=== PATIENT | male | born 1930 | race Two or more races ===

== ENCOUNTER 2017-02-21 15:41 | Inpatient (IN) | payer MEDICARE, OTHER ==
[~2017-02-21] VITALS: Ht 160 cm; Wt 86.3 kg
[2017-02-21] VITALS (30 sets, daily range): BP systolic 118–189; BP diastolic 66–100; PULSE 71–132; RESP 13–24; Ht 160 cm; Wt 86.3 kg
[2017-02-21] MEDS ORDERED: ASPI-664 PO (16:11)
[2017-02-21] MEDS ORDERED: MIDAZOLAM 1 MG/ML 2 ML INJ ONE (16:30)
[2017-02-21] MEDS ORDERED: VERAPAMIL 5 MG INJ ONE (16:30)
[2017-02-21] MEDS ORDERED: FENTAnyl 50 MCG/ML VIAL ONE (16:30)
[2017-02-21] MEDS ORDERED: NITROGLYCERIN (IC) 100 MCG/ML INJ ONE (16:30)
[2017-02-21] MEDS ORDERED: LIDOCAINE 1% (MDV) 20 ML INJ ONE (16:41)
[2017-02-21] MEDS ORDERED: hydrALAzine 20 MG INJ ONE (16:41)
[2017-02-21] MEDS ORDERED: IODIXANOL LOCM 100 ML BTL ONE (16:42)
[2017-02-21] MEDS ORDERED: BIVALIRUDIN 250MG /NS 50 ML 50 ML IVPB ONE (17:02)
[2017-02-21] MEDS ORDERED: CLOPIDOGREL 300 MG TAB ONE (17:03)
[2017-02-21] MEDS ORDERED: SOD CHLORIDE 0.9% 1,000 ML IV SCH (17:58)
[2017-02-21] MEDS ORDERED: morphine 2 MG INJ IV PRN (18:00)
[2017-02-21] MEDS ORDERED: HOLD all METFORMIN and METFORMIN CONTAINING medications for 48 hours post procedure. Chec XX SCH (18:00)
[2017-02-21] MEDS ORDERED: ONDANSETRON 4 MG INJ IV PRN (18:00)
[2017-02-21] MEDS ORDERED: AMLODIPINE 5 MG TAB PO SCH (18:00)
[2017-02-21] MEDS ORDERED: hydrALAzine 20 MG INJ IV PRN (18:00)
--- NOTE | 2017-02-21 18:33 | OPR ---
Date/Time of Note Date/Time of Note DATE: 02/21/17 TIME: 18:14 Operative Report Free Text/Dictation Procedure Date: 02/21/2017 Plumbing Foreman/surgeon: Aliya Hernandez MD. Procedures Performed: 1)Left heart catheterization with selective left and right coronary angiography. 2)Balloon angioplasty and stenting of the prox-mid with Adrian 2.5 x 18 and Adrian 2.25 x 8 drug eluting stents (overlapping) Pre-operative Diagnosis:NSTEMI Post-operative Diagnosis:NSTEMI s/p PCI of prox-mid LAD Indications:86 yo M presenting with chest pain and was found to have an NSTEMI ( trop 0.3) with ongoing symptoms. Cardiac cath for evaluation. Description of Procedure: After informed consent, the patient was brought to the cardiac catheterization lab. The procedure site was prepped and draped in usual manner. The patient was premedicated with versed 1 mg and fentanyl 25 mcg. 3 mL lidocaine was injected into the right wrist. Next using the posterior wall technique, the 6/ 5 maori sheath was inserted into the right radial artery. Next using the EBU 3.0 guide and JR4 diagnostic, selective angiography of the left and right coronary arteries were obtained. The decision was made to proceed with PCI of the LAD. After appropriate anticoagulation and antiplatelets were given, the PT 2 moderate support angioplasty wire was advanced past the lesion. Next the 2.0 X 12 balloon was used to dilate the lesion times 3 at a maximum of [address] elevations were noted. Subsequently, the Gail 2.5 x 18 stent was advanced to the lesion and deployed at 12 isai. The distal portion of the stent was underexpanded and so an Adrian 2.25 x 8 stent was used to cover the distal portion (deployed at nominal pressure and overlapping). Next the stent was post dilated with the 2.5 X 8 noncompliant balloon times 5 at a maximum of 16 isai. Final angiography revealed LIANA 3 flow, no edge dissection, and appropriate stent expansion. A brief attempt at wiring the OM lesion was attempted but due to Cx tortuosity and likely need for prolonged period to finish the case, the decision was made to stage it at a later time. Next all equipment was removed and hemostasis was achieved by TR band Findings: Anatomy/Hemodynamics: Left main: normal LAD: tortuous calcified vessel with prox-mid 99% lesion, mid-distal vessel with diffuse 20-30% plaquing Diagonal:luminal irregularities Circumflex: tortuous, calcified, 20-30% plaquing Obtuse marginal: prox 80% RCA:20-30% plaquing PDA:luminal irregularities PLV:luminal irregularities LV angiography:not done Contrast used: 180 mL Fluoroscopy time:22.3 min Medications used: Versed 1 Fentanyl 25 Radial cocktail 200 NTG, 2.5 verapamil angiomax ASA already given at [facility] Plavix 600mg NTG 200 mcg IC x1 Equipment used: 6 maori EBU 3.0 guide PT 2 moderate support angioplasty wire 2 x 12 balloon Adrian 2.5 x 18 and Adrian 2.25 x 8 drug eluting stents (overlapping) 2.5 x 8 noncompliant balloon Estimated blood loss<10 mL. Specimen: none Grafts/implants: none Complications: none Assessment: NSTEMI s/p PCI of prox-mid LAD CAD with residual OM lesion HTN Plan: -admit to ICU -ASA 81mg indefinitely -plavix 75mg at least one year -metoprolol 50mg BID -lipitor 40mg for now, can uptitrate as tolerated -staged PCI of OM in 2 weeks as outpt vs inpt if still symptomatic Preoperative Diagnosis NSTEMI Postoperative Diagnosis NSTEMI s/p PCI Surgeon see signature line Police Aide none Anesthesia Type: moderate sedation Anesthesiologist: ALIYA HERNANDEZ Estimated Blood Loss: none Transfusion none Specimen none Grafts/Implants none Complications none Procedure Description see free text ALIYA HERNANDEZ Feb 21, 2017 18:30
[2017-02-21] MEDS ORDERED: morphine (1 MG/ML) 10ML SYRINGE IV ONE (18:53)
[2017-02-21] MEDS: METOPROLOL 50 MG TAB PO SCH (19:21)
[2017-02-21] MEDS ORDERED: METOPROLOL 5 MG INJ IV ONE (20:30)
[2017-02-21] MEDS ORDERED: AMIODARONE 150 MG INJ IV STA (22:08)
[2017-02-21] MEDS ORDERED: AMIODARONE 150MG/D5W BOLUS 100 ML IV ONE (22:15)
[2017-02-22] VITALS (10 sets, daily range): BP systolic 102–151; BP diastolic 59–88; PULSE 65–111; RESP 14–21
[2017-02-22 05:29] LABS: BASOPHILS % 0.2 % (0.0-2.0); EOSINOPHILS # 0.1 10^3/ul (0.0-0.5); EOSINOPHILS % 0.7 % (0.0-7.0); HEMATOCRIT 41.8 % (42.0-52.0); HEMOGLOBIN 14.4 g/dl (14.0-18.0); LYMPHOCYTES # 3.1 10^3/ul (0.8-2.9); LYMPHOCYTES % 25.6 % (15.0-51.0); MEAN CORPUSCULAR HEMOGLOBIN 32.4 pg (29.0-33.0); MEAN CORPUSCULAR HGB CONC 34.4 g/dl (32.0-37.0); MEAN CORPUSCULAR VOLUME 94.1 fl (82.0-101.0); MONOCYTE # 1.5 10^3/ul (0.3-0.9); MONOCYTES % 12.1 % (0.0-11.0); NEUTROPHIL # 7.4 10^3/ul (1.6-7.5); NEUTROPHILS % 61.1 % (39.0-77.0); PLATELET COUNT 205 10^3/UL (140-415); RED BLOOD COUNT 4.44 10^6/ul (4.70-6.10); RED CELL DISTRIBUTION WIDTH 12.2 % (11.5-14.5); WHITE BLOOD COUNT 12.1 10^3/ul (4.8-10.8)
[2017-02-22 06:10] LABS: ALBUMIN 4.6 g/dl (3.3-4.9); ALBUMIN/GLOBULIN RATIO 1.39; BILIRUBIN,INDIRECT 1.2 mg/dl (0-1.1); BILIRUBIN,TOTAL 1.2 mg/dl (0.2-1.3); CREATININE 0.9 mg/dl (0.61-1.24); POTASSIUM 5.4 mmol/L (3.5-5.1); TOTAL PROTEIN 7.9 g/dl (6.1-8.1)
--- NOTE | 2017-02-22 07:53 | CONS ---
Date/Time of Note Date/Time of Note DATE: 02/22/17 TIME: 07:48 Assessment/Plan Assessment/Plan Chief Complaint/Hosp Course NSTEMI s/p PCI of prox-mid LAD 02/22. CAD: with residual OM lesion. If ambulates without symptoms, can be done as outpt in 2-3 weeks. If recurrent chest pain, can be done Friday Paroxysmal SVT: Likely atrial tachycardia by EKG and tele. Was asymptomatic throughout. Had to use one dose of IV amiodarone without a drip but now remains in sinus. HTN Hyperkalemia: Cr normal so ?hemolyzed sample -ambulate and if asymptomatic and no further SVT, can be discharged. Otherwise can be transferred to tele and if recurrent chest pain, will stage PCI of OM on Friday I have given a prescription for below meds. -ASA 81mg indefinitely -plavix 75mg at least one year -metoprolol 50mg BID -lipitor 40mg for now, can uptitrate as tolerated -amlodipine 10mg -hold ACEI/ARB for now due to hyperkalemia -f/u with me in one week Problems: Consultation Date/Type/Reason Admit Date/Time Feb 21, 2017 at 20:20 Initial Consult Date 24 HR Interval Summary Free Text/Dictation Had SVT to the 130s overnight, asymptomatic. Eventually converted with amio bolus but no drip. No recurrence. No chest pain or SOB this am. Exam/Review of Systems Vital Signs Vitals Vital Signs Date Time Temp Pulse Resp B/P Pulse Ox O2 Delivery O2 Flow Rate FiO2 02/22/17 05:00 81 14 151/77 98 Room Air 02/22/17 04:00 98.5 Intake and Output 02/21/17 02/21/17 02/22/17 15:00 23:00 07:00 Intake Total 480 ml 525 ml Output Total 300 ml 400 ml Balance 180 ml 125 ml Exam Constitutional: alert, oriented Psych: no complaints Head: atraumatic, normocephalic Neck: No jvd Respiratory: clear to auscultation Cardiovascular: regular rate and rhythm, No edema, No systolic murmur Gastrointestinal: non-tender, soft, No distended Neurological: nl mental status, nl speech Skin: No rash or lesions Results Result Diagram: 02/22/1745602/22/17456 Results 24 hrs Laboratory Tests Test 02/22/17 04:57 White Blood Count 12.1 H Red Blood Count 4.44 L Hemoglobin 14.4 Hematocrit 41.8 L Mean Corpuscular Volume 94.1 Mean Corpuscular Hemoglobin 32.4 Mean Corpuscular Hemoglobin Concent 34.4 Red Cell Distribution Width 12.2 Platelet Count 205 Mean Platelet Volume 9.0 Neutrophils % 61.1 Lymphocytes % 25.6 Monocytes % 12.1 H Eosinophils % 0.7 Basophils % 0.2 Nucleated Red Blood Cells % 0.0 Neutrophils # 7.4 Lymphocytes # 3.1 H Monocytes # 1.5 H Eosinophils # 0.1 Basophils # 0.0 Nucleated Red Blood Cells # 0.0 Sodium Level 136 Potassium Level 5.4 H Chloride Level 104 Carbon Dioxide Level 22 Anion Gap 15 Blood Urea Nitrogen 14 Creatinine 0.90 Glucose Level 144 Calcium Level 9.0 Total Bilirubin 1.2 Direct Bilirubin 0.00 Indirect Bilirubin 1.2 H Aspartate Amino Transf (AST/SGOT) 69 H Alanine Aminotransferase (ALT/SGPT) 31 Alkaline Phosphatase 48 Total Protein 7.9 Albumin 4.6 Globulin 3.30 H Albumin/Globulin Ratio 1.39 Medications Medications Current Medications Miscellaneous Information (* Miscellaneous Pharmacy Order) HOLD all METFORMIN ... ONCE XX ; Start 02/21/17 at 18:00; Stop 02/23/17 at 17:59 Morphine Sulfate (morphine) 2 mg Q2H PRN IV FOR NON CARDIAC PAIN (4-10) Last administered on 02/21/17 19:12; Admin Dose 2 MG; Start 02/21/17 at 18:00 Ondansetron HCl (Zofran Inj) 4 mg Q4H PRN IV NAUSEA AND/OR VOMITING; Start at 18:00 Hydralazine HCl (Apresoline) 10 mg Q8H PRN IV SBP>160; Start 02/21/17 at 18:00 Metoprolol Tartrate (Lopressor) 50 mg BID PO Last administered on 02/21/17 19: 21; Admin Dose 50 MG; Start 02/21/17 at 21:00 Amlodipine Besylate (Norvasc) 5 mg DAILY PO Last administered on 02/21/17 21: 01; Admin Dose 5 MG; Start 02/21/17 at 18:00 Aspirin (Aspirin) 81 mg DAILY PO ; Start 02/22/17 at 09:00 Clopidogrel Bisulfate (plaVIX) 75 mg DAILY PO ; Start 02/22/17 at 09:00 ALIYA HUITRON Feb 22, 2017 07:53
[2017-02-22] MEDS: METOPROLOL 50 MG TAB PO SCH (08:14)
[2017-02-22] MEDS ORDERED: CLOPIDOGREL 75 MG TAB PO SCH (09:00)
[2017-02-22] MEDS ORDERED: AMLODIPINE 10 MG TAB PO SCH (09:00)
[2017-02-22] MEDS ORDERED: ATORVASTATIN 40 MG TAB PO SCH (09:00)
[2017-02-22] MEDS ORDERED: ASPIRIN 81 MG TAB PO SCH (09:00)
[2017-02-22] MEDS ORDERED: ATOR40TA68 PO (09:09)
[2017-02-22] MEDS ORDERED: AMLO-147 PO (09:09)
[2017-02-22] MEDS ORDERED: CLOP75TA28 PO (09:09)
[2017-02-22] MEDS ORDERED: ASPI81TA3 PO (09:09)
[2017-02-22] MEDS ORDERED: METO-429 PO (09:09)
--- NOTE | 2017-02-22 09:12 | DS ---
Date/Time of Note Date/Time of Note DATE: 02/22/17 TIME: 09:11 Discharge Summary Admission/Discharge Info Admit Date/Time Feb 21, 2017 at 20:20 Discharge Date/Time Discharge Diagnosis s/p cath, stent Patient Condition: Good Hx of Present Illness pt. admitted for cp, went to lab clerk, had pci, still has lesion in OM to be done at later date per cards. currently stable, no cp or arrhythmias meds reviewed with pt. will see cards in 3 days Hospital Course NSTEMI s/p PCI of prox-mid LAD 02/22. CAD: with residual OM lesion. If ambulates without symptoms, can be done as outpt in 2-3 weeks. If recurrent chest pain, can be done Friday Paroxysmal SVT: Likely atrial tachycardia by EKG and tele. Was asymptomatic throughout. Had to use one dose of IV amiodarone without a drip but now remains in sinus. HTN Hyperkalemia: Cr normal so ?hemolyzed sample -ambulate and if asymptomatic and no further SVT, can be discharged. Otherwise can be transferred to tele and if recurrent chest pain, will stage PCI of OM on Friday I have given a prescription for below meds. -ASA 81mg indefinitely -plavix 75mg at least one year -metoprolol 50mg BID -lipitor 40mg for now, can uptitrate as tolerated -amlodipine 10mg -hold ACEI/ARB for now due to hyperkalemia -f/u with me in one week Home Meds Active Scripts Aspirin (Aspirin) 81 Mg Chew, 81 MG PO DAILY for 90 Days, TAB Prov:CHAD ALSTON MD 02/22/17 Metoprolol Tartrate* (Lopressor*) 50 Mg Tab, 50 MG PO BID for 90 Days, TAB Prov:CHAD ALSTON MD 02/22/17 Atorvastatin* (Atorvastatin*) 40 Mg Tablet, 40 MG PO DAILY for 90 Days, TAB Prov:CHAD ALSTON MD 02/22/17 Amlodipine Besylate* (Amlodipine Besylate*) 10 Mg Tablet, 10 MG PO DAILY for 90 Days, TAB Prov:CHAD ALSTON MD 02/22/17 Clopidogrel Bisulfate (Clopidogrel) 75 Mg Tablet, 75 MG PO DAILY for 90 Days, TAB Prov:CHAD ALSTON MD 02/22/17 Reported Medications Aspirin* (Aspirin* EC) 81 Mg Tablet., 81 MG PO DAILY, TAB 02/21/17 Primary Care Provider Care Physician No Primary Time spent on discharge: < 30 minutes Pending Labs Laboratory Tests Test 02/22/17 04:57 White Blood Count 12.110^3/ul (4.8-10.8) Red Blood Count 4.4410^6/ul (4.70-6.10) Hemoglobin 14.4g/dl (14.0-18.0) Hematocrit 41.8% (42.0-52.0) Mean Corpuscular Volume 94.1fl (82.0-101.0) Mean Corpuscular Hemoglobin 32.4pg (29.0-33.0) Mean Corpuscular Hemoglobin Concent 34.4g/dl (32.0-37.0) Red Cell Distribution Width 12.2% (11.5-14.5) Platelet Count 08712^3/UL (140-415) Mean Platelet Volume 9.0fl (7.4-10.4) Neutrophils % 61.1% (39.0-77.0) Lymphocytes % 25.6% (15.0-51.0) Monocytes % 12.1% (0.0-11.0) Eosinophils % 0.7% (0.0-7.0) Basophils % 0.2% (0.0-2.0) Nucleated Red Blood Cells % 0.0/100WBC (0.0-0.0) Neutrophils # 7.410^3/ul (1.6-7.5) Lymphocytes # 3.110^3/ul (0.8-2.9) Monocytes # 1.510^3/ul (0.3-0.9) Eosinophils # 0.110^3/ul (0.0-0.5) Basophils # 0.010^3/ul (0.0-0.1) Nucleated Red Blood Cells # 0.010^3/ul (0.0-0.0) Sodium Level 136mmol/L (135-144) Potassium Level 5.4mmol/L (3.5-5.1) Chloride Level 104mmol/L (97-110) Carbon Dioxide Level 22mmol/L (21-31) Anion Gap 15 (8-16) Blood Urea Nitrogen 14mg/dl (7-20) Creatinine 0.90mg/dl (0.61-1.24) Glucose Level 144mg/dl (70-220) Calcium Level 9.0mg/dl (8.4-10.2) Total Bilirubin 1.2mg/dl (0.2-1.3) Direct Bilirubin 0.00mg/dl (0.00-0.20) Indirect Bilirubin 1.2mg/dl (0-1.1) Aspartate Amino Transf (AST/SGOT) 69IU/L (15-46) Alanine Aminotransferase (ALT/SGPT) 31IU/L (13-69) Alkaline Phosphatase 48IU/L (42-121) Total Protein 7.9g/dl (6.1-8.1) Albumin 4.6g/dl (3.3-4.9) Globulin 3.30g/dl (1.3-3.2) Albumin/Globulin Ratio 1.39 CHAD ALSTON MD Feb 22, 2017 09:12
--- NOTE | 2017-02-24 17:06 | RADRPT ---
Vent Rate: 133 bpm RR Interval: 0 msec IN Interval: 0 msec QRS Duration: 134 msec QT Interval: 382 msec QTC Interval: 568 msec P-R-T Independence: 0 - 57 - 32 degrees Wide QRS tachycardia Right bundle branch block Septal infarct , age undetermined Abnormal ECG Electronically Signed By: Handy Melton [id number]
== END 2017-02-22 10:45 | disposition home or self-care (01) | DRG 247 ==
LOC: CCL 15:41 → ICU 20:20
PROVIDERS: ADMIT Internal Medicine Interventional Cardiology; ATTEND Internal Medicine Interventional Cardiology
PROC: B211YZZ Fluoroscopy of Multiple Coronary Arteries using Other Contrast (ICD-10-PCS; 2017-02-21)
PROC: 027035Z Dilation of Coronary Artery, One Artery with Two Drug-eluting Intraluminal Devices, Percutaneous Approach (ICD-10-PCS; principal; 2017-02-21 16:00)
PROC: 4A023N7 Measurement of Cardiac Sampling and Pressure, Left Heart, Percutaneous Approach (ICD-10-PCS; 2017-02-21 16:00)
DX: I21.4 Non-ST elevation (NSTEMI) myocardial infarction (principal); E87.5 Hyperkalemia; I47.1 Supraventricular tachycardia; I10 Essential (primary) hypertension; I25.10 Atherosclerotic heart disease of native coronary artery without angina pectoris; I16.0 Hypertensive urgency; Z79.02 Long term (current) use of antithrombotics/antiplatelets; Z79.82 Long term (current) use of aspirin
CPT/HCPCS: 80053; 85025; 87081; 93005; 93454; C1725; C1887; C9600; J0282; J0360; J0583; J1644; J2250; J2270; J3010; Q9967

== ENCOUNTER 2017-02-27 13:10 | Inpatient (IN) | payer MEDICARE, OTHER ==
[2017-02-27] VITALS (13 sets, daily range): BP systolic 112–179; BP diastolic 55–85; PULSE 66–81; RESP 15–23; Ht 160 cm; Wt 83.0 kg
[~2017-02-27] VITALS: Ht 160 cm; Wt 83.0 kg
[~2017-02-27 13:10] MED LIST: AMLO-147 PO; ASPI-664 PO; ASPI81TA3 PO; ATOR40TA68 PO; CLOP75TA28 PO; METO-429 PO
[2017-02-27] MEDS ORDERED: ATOR40TA68 PO (13:52)
[2017-02-27] MEDS ORDERED: LIDOCAINE 1% (MDV) 20 ML INJ ONE (13:57)
[2017-02-27] MEDS ORDERED: HEPARIN 1000 UNITS/ML 10 ML INJ ONE (13:57)
[2017-02-27] MEDS ORDERED: FENTAnyl 50 MCG/ML VIAL ONE (13:57)
[2017-02-27] MEDS ORDERED: IODIXANOL LOCM 100 ML BTL ONE (13:57)
[2017-02-27] MEDS ORDERED: HEPARIN 1000 UNITS/NS (A-LINE) 1,000 ML ONE (13:57)
[2017-02-27] MEDS ORDERED: NITROGLYCERIN (IC) 100 MCG/ML INJ ONE (13:58)
[2017-02-27] MEDS ORDERED: VERAPAMIL 5 MG INJ ONE (13:58)
[2017-02-27] MEDS ORDERED: MIDAZOLAM 1 MG/ML 2 ML INJ ONE (13:58)
[2017-02-27] MEDS ORDERED: BIVALIRUDIN 250MG /NS 50 ML 50 ML IVPB ONE ×2 (14:10→15:41)
[2017-02-27] MEDS ORDERED: CLOPIDOGREL 300 MG TAB ONE (14:13)
[2017-02-27] MEDS ORDERED: SOD CHLORIDE 0.9% 1,000 ML IV SCH (16:26)
[2017-02-27] MEDS ORDERED: morphine 2 MG INJ IV PRN (16:30)
--- NOTE | 2017-02-27 16:49 | OPR ---
Date/Time of Note Date/Time of Note DATE: 02/27/17 TIME: 16:32 Operative Report Preoperative Diagnosis NSTEMI Postoperative Diagnosis NSTEMI, s/p PCI of OM Surgeon see signature line Vp none Anesthesia Type: moderate sedation Estimated Blood Loss: minimal Transfusion none Specimen none Grafts/Implants none Complications none Procedure Description Procedure Date:02/27/2017 Casting Plug Assembler/surgeon: Aliya Hernandez MD. Procedures Performed: 1)Left heart catheterization with selective left coronary angiography. 2)Balloon angioplasty and stenting of the prox OM with an Adrian 2.25 x 8 stent. Pre-operative Diagnosis:NSTEMI, recurrent chest pain with known residual CAD Post-operative Diagnosis:same s/p PCI of OM Indications:86 yo M with CAD s/p PCI of LAD 02/21/17 with residual CAD of the prox OM with plans for outpt staged PCI, who presented with recurrent chest pain and had elavted trops again (0.2). The pt was admitted and transferred for cardiac cath to reexamine the LAD stent and likely PCI of the OM Description of Procedure: After informed consent, the patient was brought to the cardiac catheterization lab. The procedure site was prepped and draped in usual manner. The patient was premedicated with versed 1 mg and fentanyl 50 mcg. 2 mL lidocaine was injected into the left wrist. Next using the posterior wall technique, the 6/5 st lucian sheath was inserted into the left radial artery. Next using the EBU 3.0 guide, selective angiography of the left coronary arteries was obtained. The decision was made to proceed with PCI of the OM as the LAD stent was patent. The EBU 3.0, 3.25 and eventually the Voda 3.5 guide was advanced and engaged into the left coronary artery. After appropriate anticoagulation and antiplatelets were given, the BMW angioplasty wire was advanced past the lesion using a 1.2 x 8 balloon for support. The balloon was then used to dilate the lesion times 3. Next the 2.0 X 12 balloon was used to dilate the lesion 3. The stent would not cross so the lesion was then dilated with the 2.5 x 8 NC balloon. The stent again would not cross so a Mailman was advanced as a gayathri. Again the stent would not cross so the calcified bend prior to the OM lesion at the Cx) was dialted with the 2.5 x 8 NC balloon. Eventually, the Adrian 2.25 x 8 stent was advanced to the lesion and deployed at 12 isai after the Mailman was removed. Next the stent was post dilated with the 2.5 X 6 noncompliant balloon times 2 at a maximum of 14 isai. Final angiography revealed LIANA 3 flow, no edge dissection, and appropriate stent expansion. Next all equipment was removed and hemostasis was achieved by TR band. Findings: Anatomy/Hemodynamics: Left main: normal LAD: prox-mid stents patent Diagonal:luminal irregularities Circumflex: tortuous vessel with mid disease right at large OM branch Obtuse marginal: prox 80% eccentric lesion Contrast used: Fluoroscopy time: 160 mL Medications used: Versed 1mg Fentanyl 50 mcg ANgiomax plavix 300mg NTG 200 IC x1 Equipment used: 6 st lucian Voda 3.5 guide BMW and Mailman angioplasty wire 1.2 x 8 2 x 8 balloon 2.25 x 8 NC Adrian 2.25 x 8 drug eluting stent 2.5 x 6 noncompliant balloon Estimated blood loss<10 mL. Specimen: none Grafts/implants: none Complications: none Assessment: NSTEMI s/p PCI of residual OM lesion. LAD stent was patent CAD: no residual lesions left HTN Plan: -ASA 81mg lifelong -plavix 75mg one year -lipitor 40mg -metoprolol had been switched to Toprol XL 100mg -benazepril 10mg ALIYA HERNANDEZ Feb 27, 2017 16:49
--- NOTE | 2017-02-27 16:50 | CONS ---
Date/Time of Note Date/Time of Note DATE: 02/27/17 TIME: 16:49 Assessment/Plan Assessment/Plan Chief Complaint/Hosp Course NSTEMI s/p PCI of residual OM lesion. LAD stent was patent CAD: no residual lesions left HTN Generalized rash: ?drug induced -ASA 81mg lifelong -plavix 75mg one year -lipitor 40mg -metoprolol had been switched to Toprol XL 100mg -benazepril 10mg Problems: Consultation Date/Type/Reason Admit Date/Time Initial Consult Date 24 HR Interval Summary Free Text/Dictation S/p cath with PCI of prox OM Exam/Review of Systems Exam Constitutional: alert, oriented Psych: nl mood/affect, no complaints Head: atraumatic, normocephalic Neck: No jvd Respiratory: clear to auscultation, No crackles/rales Cardiovascular: regular rate and rhythm, No edema Gastrointestinal: non-tender, soft Neurological: nl mental status, nl speech Medications Medications Current Medications Miscellaneous Information (* Miscellaneous Pharmacy Order) HOLD all METFORMIN ... ONCE ONCE XX ; Start 02/27/17 at 16:30; Stop 02/27/17 at 16:31; Status UNV Morphine Sulfate 2 mg 2 mg Q2H PRN IV FOR NON CARDIAC PAIN (4-10); Start at 16:30; Status UNV Sodium Chloride (NS) 1,000 ml @ 75 mls/hr [id number] IV ; Start 02/27/17 at 16:26 ; Stop 02/27/17 at 21:25; Status UNV ALIYA HUITRON Feb 27, 2017 16:50
[2017-02-27] MEDS ORDERED: hydrALAzine 20 MG INJ IV PRN (17:00)
[2017-02-27] MEDS ORDERED: HYDROCORTISONE 2.5% 20 GM CR TOP SCH (17:27)
[2017-02-27] MEDS: HYDROCORTISONE 2.5% 20 GM CR TOP SCH (18:03)
[2017-02-27] MEDS ORDERED: ATORVASTATIN 40 MG TAB PO SCH (21:00)
[2017-02-28] VITALS (17 sets, daily range): BP systolic 101–176; BP diastolic 54–83; PULSE 68–83; RESP 9–21
[2017-02-28 07:38] LABS: BASOPHILS % 0.3 % (0.0-2.0); EOSINOPHILS # 0.7 10^3/ul (0.0-0.5); EOSINOPHILS % 5.6 % (0.0-7.0); HEMATOCRIT 38.3 % (42.0-52.0); HEMOGLOBIN 13.2 g/dl (14.0-18.0); LYMPHOCYTES % 17.6 % (15.0-51.0); MEAN CORPUSCULAR HEMOGLOBIN 31.9 pg (29.0-33.0); MEAN CORPUSCULAR HGB CONC 34.5 g/dl (32.0-37.0); MEAN CORPUSCULAR VOLUME 92.5 fl (82.0-101.0); MEAN PLATELET VOLUME 8.9 fl (7.4-10.4); MONOCYTE # 1.2 10^3/ul (0.3-0.9); MONOCYTES % 10.4 % (0.0-11.0); NEUTROPHIL # 7.6 10^3/ul (1.6-7.5); NEUTROPHILS % 65.8 % (39.0-77.0); PLATELET COUNT 224 10^3/UL (140-415); RED BLOOD COUNT 4.14 10^6/ul (4.70-6.10); RED CELL DISTRIBUTION WIDTH 11.9 % (11.5-14.5); WHITE BLOOD COUNT 11.6 10^3/ul (4.8-10.8)
[2017-02-28 08:01] LABS: CALCIUM 8.5 mg/dl (8.4-10.2); CREATININE 0.97 mg/dl (0.61-1.24); POTASSIUM 3.8 mmol/L (3.5-5.1)
[2017-02-28] MEDS: HYDROCORTISONE 2.5% 20 GM CR TOP SCH ×3 (08:08→13:03)
[2017-02-28] MEDS ORDERED: ASPIRIN 81 MG TAB PO SCH (09:00)
[2017-02-28] MEDS ORDERED: BENAZEPRIL 10 MG TAB PO SCH (09:00)
[2017-02-28] MEDS ORDERED: CLOPIDOGREL 75 MG TAB PO SCH (09:00)
[2017-02-28] MEDS ORDERED: METOPROLOL (XL) 100 MG TAB PO SCH (09:00)
--- NOTE | 2017-02-28 09:42 | CONS ---
Date/Time of Note Date/Time of Note DATE: 02/28/17 TIME: 09:39 Assessment/Plan Assessment/Plan Chief Complaint/Hosp Course NSTEMI s/p PCI of residual OM lesion. LAD stent was patent CAD: no residual lesions left HTN Generalized rash: ?drug induced. Unclear culprit. Has been on ASA residential and benazepril was started after rash so either plavix, MTP which are less likely or lipitor -ok for d/c home -ASA 81mg lifelong -plavix 75mg one year -hold lipitor for now to see how the rash does -metoprolol had been switched to Toprol XL 100mg, continue on d/c -benazepril 10mg Problems: Consultation Date/Type/Reason Admit Date/Time Feb 27, 2017 at 16:48 24 HR Interval Summary Free Text/Dictation No chest pain or SOB overnight. Very brief run of SVT. Still with rash and itching Exam/Review of Systems Vital Signs Vitals Vital Signs Date Time Temp Pulse Resp B/P Pulse Ox O2 Delivery O2 Flow Rate FiO2 02/28/17 06:00 75 15 130/74 95 Room Air 02/28/17 04:00 98.4 Intake and Output 02/27/17 02/27/17 02/28/17 15:00 23:00 07:00 Intake Total 595 ml 600 ml Output Total 200 ml 300 ml Balance 395 ml 300 ml Exam Constitutional: alert, oriented Psych: no complaints Head: atraumatic, normocephalic Neck: No jvd Respiratory: clear to auscultation, No crackles/rales Cardiovascular: regular rate and rhythm, No edema, No systolic murmur Gastrointestinal: non-tender, soft Neurological: nl mental status, nl speech Skin: rash or lesions (generalized rash) Results Result Diagram: 02/28/1772702/28/17727 Results 24 hrs Laboratory Tests Test 02/28/17 07:28 White Blood Count 11.6 H Red Blood Count 4.14 L Hemoglobin 13.2 L Hematocrit 38.3 L Mean Corpuscular Volume 92.5 Mean Corpuscular Hemoglobin 31.9 Mean Corpuscular Hemoglobin Concent 34.5 Red Cell Distribution Width 11.9 Platelet Count 224 Mean Platelet Volume 8.9 Neutrophils % 65.8 Lymphocytes % 17.6 Monocytes % 10.4 Eosinophils % 5.6 Basophils % 0.3 Nucleated Red Blood Cells % 0.0 Neutrophils # 7.6 H Lymphocytes # 2.0 Monocytes # 1.2 H Eosinophils # 0.7 H Basophils # 0.0 Nucleated Red Blood Cells # 0.0 Sodium Level 138 Potassium Level 3.8 Chloride Level 107 Carbon Dioxide Level 22 Anion Gap 13 Blood Urea Nitrogen 14 Creatinine 0.97 Glucose Level 121 Calcium Level 8.5 Medications Medications Current Medications Morphine Sulfate (morphine) 2 mg Q2H PRN IV FOR NON CARDIAC PAIN (4-10); Start 02/27/17 at 16:30 Aspirin (Aspirin) 81 mg DAILY PO Last administered on 02/28/17 08:07; Admin Dose 81 MG; Start 02/28/17 at 09:00 Clopidogrel Bisulfate (plaVIX) 75 mg DAILY PO Last administered on 02/28/17 08 :07; Admin Dose 75 MG; Start 02/28/17 at 09:00 Atorvastatin Calcium (Lipitor) 40 mg HS PO Last administered on 02/27/17 20:59 ; Admin Dose 40 MG; Start 02/27/17 at 21:00 Metoprolol Succinate (Toprol Xl) 100 mg DAILY PO Last administered on 08:07; Admin Dose 100 MG; Start 02/28/17 at 09:00 Benazepril HCl (Lotensin) 10 mg DAILY PO Last administered on 02/28/17 08:08; Admin Dose 10 MG; Start 02/28/17 at 09:00 Hydralazine HCl (Apresoline) 5 mg Q4H PRN IV SBP>160; Start 02/27/17 at 17:00 Hydrocortisone (Hydrocortisone 2.5% Cr) 1 applic TID TOP Last administered on 02/28/17 08:08; Admin Dose 1 APPLIC; Start 02/27/17 at 17:31 ALIYA HUITORN Feb 28, 2017 09:42
[2017-02-28] MEDS ORDERED: ASPI81TA3 PO (11:24)
[2017-02-28] MEDS ORDERED: BENEZEPRIL PO (11:26)
[2017-02-28] MEDS ORDERED: TOPROL PO (11:27)
--- NOTE | 2017-02-28 13:47 | HP ---
DATE OF ADMISSION: 02/27/2017 HISTORY OF PRESENT ILLNESS: This is an 86-year-old male with a past medical history of coronary ar jonny disease status post PCI to LAD on 02/21/2017 with residual coronary artery disease to proximal OM, a history of hypertension who presents to [facility] to undergo elective cardi ac catheterization. Patient was seen by , performed cardiac catheterization with revascula rization of the obtuse marginal. The patient following this procedure, was admitted to the ICU for observation. Overnight, the patient has been stable. There have been no reports of hemoptysis, hem atemesis or hematochezia. PAST MEDICAL HISTORY: History of coronary artery disease, dyslipidemia, hypertension. PAST SURGICAL HISTORY: Status post PCI. ALLERGIES: NO KNOWN DRUG ALLERGIES. FAMILY HISTORY: Noncontributory. SOCIAL HISTORY: Does not drink, smoke or do drugs. MEDICATIONS: Reviewed. REVIEW OF SYSTEMS: A 14-point review of systems was conducted. Pertinent positives in HPI, otherwi se negative. PHYSICAL EXAMINATION: VITAL SIGNS: Blood pressure is 130/74, respirations 15, pulse 75, temperature 98.4. HEENT: Head is normocephalic. Pupils are reactive to light. NECK: Supple. HEART: Regular rate. LUNGS: Show diminished breath sounds at base. ABDOMEN: Soft, nontender to palpation without rebound or guarding. EXTREMITIES: Negative for clubbing, cyanosis, edema. DERMATOLOGIC: No rashes. MUSCULOSKELETAL: No joint effusions. NEUROLOGIC: No change in exam. SKIN: The patient noted to have a rash, erythematous. MEDICATIONS: The patient's medications have been reviewed. LABORATORY DATA: Shows a sodium 138, potassium 3.8, BUN is 14, creatinine 0.97. White count 11.6, hemoglobin 13.2, hematocrit 38.3, platelet count is 224. ASSESSMENT AND PLAN: 1. Non-ST elevation myocardial infarction. The status post PCI to OM. Continue current medical ma nagement. Continue aspirin, Plavix, Lipitor, metoprolol and benazepril. 2. Coronary artery disease. Continue current medical management. 3. Hypertension. Continue current blood pressure regimen. 4. Leukocytosis. Etiology is unclear, possibly reactive. Continue to monitor. 5. Anemia. Continue to monitor hemoglobin and hematocrit levels. 6. Generalized rash, unclear. Continue hydrocortisone topical. Monitor closely. Please note I spent 25 minutes face to face time with the patient. The patient is full code. Dictated By: HUMBERTO MARTIN/WESLEY Conf#: [id number] DID#: [id number]
[2017-02-28] MEDS ORDERED: DIPHENHYDRAMINE 25 MG CAP PO ONE (14:00)
[2017-02-28] MEDS ORDERED: METHYLPREDNISOLONE 125 MG INJ IV ONE (14:30)
== END 2017-02-28 15:50 | disposition home or self-care (01) | DRG 247 ==
LOC: CCL 13:10 → ICU 16:48
PROVIDERS: ADMIT Internal Medicine; ATTEND Internal Medicine
PROC: 4A023N7 Measurement of Cardiac Sampling and Pressure, Left Heart, Percutaneous Approach (ICD-10-PCS; 2017-02-27)
PROC: B211YZZ Fluoroscopy of Multiple Coronary Arteries using Other Contrast (ICD-10-PCS; 2017-02-27)
PROC: 3E033PZ Introduction of Platelet Inhibitor into Peripheral Vein, Percutaneous Approach (ICD-10-PCS; 2017-02-27)
PROC: 027034Z Dilation of Coronary Artery, One Artery with Drug-eluting Intraluminal Device, Percutaneous Approach (ICD-10-PCS; principal; 2017-02-27 15:00)
DX: I21.4 Non-ST elevation (NSTEMI) myocardial infarction (principal); I10 Essential (primary) hypertension; I25.119 Atherosclerotic heart disease of native coronary artery with unspecified angina pectoris; L25.1 Unspecified contact dermatitis due to drugs in contact with skin; T44.7X5A Adverse effect of beta-adrenoreceptor antagonists, initial encounter; Y92.230 Patient room in hospital as the place of occurrence of the external cause; K21.9 Gastro-esophageal reflux disease without esophagitis; M51.9 Unspecified thoracic, thoracolumbar and lumbosacral intervertebral disc disorder; Z87.891 Personal history of nicotine dependence
CPT/HCPCS: 80048; 85025; 87081; C1725; C1887; C9600; J0360; J0583; J1644; J2250; J2930; J3010; J7030; Q9967